=== PATIENT | female | born 1985 | race Caucasian/White ===

== ENCOUNTER 2021-07-04 12:10 | Emergency (ER) | payer SELFPAY ==
[~2021-07-04] VITALS: Ht 165.1 cm; Wt 73.0 kg
[2021-07-04] MEDS ORDERED: KETOROLAC 15MG/ML VIAL IV ONE (15:00)
[2021-07-04] MEDS ORDERED: SODIUM CHLORIDE 0.9% 100 ML IV ONE (15:00)
[2021-07-04] MEDS ORDERED: ONDANSETRON HCL 4MG/2ML INJ IV ONE (15:00)
[2021-07-04 16:25] LABS: CLARITY URINE CLEAR (CLEAR); COLOR URINE YELLOW (YELLOW); KETONES URINE NEGATIVE (NEGATIVE); LEUKOCYTE ESTERASE URINE NEGATIVE (NEGATIVE); NITRITE URINE NEGATIVE (NEGATIVE); OCCULT BLOOD URINE NEGATIVE (NEGATIVE); PH URINE 5.5 (4.5-8.0); PROTEIN URINE NEGATIVE (NEGATIVE); SPECIFIC GRAVITY URINE 1.009 (1.005-1.030); UROBILINOGEN URINE 0.2 E.U./dL (0.2-1.0)
[2021-07-04 16:28] LABS: BASOPHILS % 0.6 % (0.0-2.0); EOSINOPHILS % 0.3 % (0.0-5.0); HEMATOCRIT. 39.2 % (36.0-48.0); HEMOGLOBIN. 13.3 g/dL (12.0-16.0); LYMPHOCYTES % 27.1 % (20.0-50.0); MEAN CORPUSCULAR HEMOGLOBIN 29.5 pg (28.0-32.0); MEAN CORPUSCULAR VOLUME 86.8 fL (81.0-99.0); MEAN PLATELET VOLUME 7.8 fl (7.4-10.4); MONOCYTES % 3.5 % (2.0-8.0); NEUTROPHILS % 68.5 % (40.0-76.0); PLATELET 452 x1000/uL (130-400); RED BLOOD CELL COUNT 4.52 mill/uL (4.2-5.4); RED CELL DISTRIBUTION WIDTH 14.4 % (11.6-14.6)
[2021-07-04 16:36] LABS: CHLORIDE 106 mEq/L (98-107)
[2021-07-04 16:37] LABS: HCG SCREEN NEGATIVE
[2021-07-04] MEDS ORDERED: IOHEXOL-300 100 ML BOTTLE ONE (18:18)
[2021-07-04] MEDS ORDERED: DOXY100C5 MT (19:38)
[2021-07-04] MEDS ORDERED: CEFTRIAXONE SODIUM 500 MG/VIAL IM ONE (19:45)
[2021-07-04 20:00] VITALS: BP 104/77
== END 2021-07-04 20:57 | disposition home or self-care (01) ==
LOC: ER 12:10
DX: N89.8 Other specified noninflammatory disorders of vagina (principal); F17.200 Nicotine dependence, unspecified, uncomplicated; F12.10 Cannabis abuse, uncomplicated
CPT/HCPCS: 36415; 74177; 80053; 81003; 82248; 84703; 85025; 96361; 96372; 96374; 96375; 99285; J0696; J1885; J2405; J7050; Q9967